=== PATIENT | female | born 1985 | race Caucasian/White ===

== ENCOUNTER 2020-05-30 10:20 | Outpatient (CLI) | payer OTHER | END 2020-05-30 23:59 | disposition home or self-care (01) | LOC: LAB.R 10:20 | PROVIDERS: ATTEND Family Medicine | DX: J06.9 Acute upper respiratory infection, unspecified (principal); Z20.828 Contact with and (suspected) exposure to other viral communicable diseases | CPT/HCPCS: 87070; 87275; 87276 ==

== ENCOUNTER 2020-09-19 20:10 | Emergency (ER) | payer OTHER ==
[2020-09-19] MEDS ORDERED: AMOX/CLAV 875 MG/125 MG TABLET PO STA (20:42)
--- NOTE | 2020-09-19 20:47 | ED Physician Documentation ---
History of Present Illness - Stated complaint Stated Complaint: FACIAL SWELLING - Chief complaint Chief Complaint: Wound - Additonal information Additional information: 35-year-old female presents the emergency department for evaluation of right- sided facial lesions, right-sided facial swelling ear drainage and pain. She reports that for at least 6 months she has been having recurrent skin lesions above her right lip and on the right side of her face. There was an initial suspicion for shingles and she was started on Neurontin as well as acyclovir. She currently remains on acyclovir suppressive therapy though the skin lesions have not dissipated. In addition to that this morning when she was driving to work she felt swelling and pain on the right side of her cheek. She also had drainage coming from the right side of her ear. She did take some ibuprofen but was advised to come to the ER on the advice of her doctor. She denies any fevers, nausea, vomiting, or back pain Review of Systems Constitutional: denies: Chills Eyes: reports: Reviewed and negative Ears: reports: Ear pain, Drainage/discharge Nose: reports: Reviewed and negative Throat: denies: Dental pain / toothache, Sore throat, Swollen tonsils, Swallowed foreign body Cardiac: denies: Chest pain / pressure, Pedal edema Respiratory: denies: Dyspnea, Cough GI: denies: Abdominal Pain, Abdominal Swelling, Nausea Skin: reports: Lesions PD PAST MEDICAL HISTORY - Present Medications Home Medications: Ambulatory Orders Medication Instructions Recorded Confirmed Amox/Clav 875/125 [Augmentin] 1 each PO Q12H #20 tablet 09/19/20 Mupirocin 2% Oint [Bactroban 2% 1 applic TOP BID #22 gm 09/19/20 Oint] - Allergies Allergies/Adverse Reactions: Allergies Allergy/AdvReac Type Severity Reaction Status Date / Time codeine Allergy Nausea Verified 09/19/20 20:15 PD ED PE EXPANDED - General General: Alert, No acute distress, Well developed/nourished - HEENT HEENT: R TM bulging (Erythema of the right TM with purulent fluid effusion seen behind it. Mild erythema of the EAC. Right ear quite tender to touch. No tenderness of the mastoid.). No: Ears normal - Neck Neck: Supple w/out meningeal sx, No tenderness - Cardiac Cardiac: Regular Rate, Regular Rhythm, Pedal strong equal, Cap refill < 2 sec. No: Murmur Present - Respiratory Respiratory: Clear to ausultation ranjana. No: Distress - Abdomen Abdomen: Normal Bowel sounds. No: Tender to palpation - Derm Derm: Normal color, Warm and dry, Other (Shallow irregular ulceration of the right cheek measuring 1 x 2 cm with a yellow base and mild amount of surrounding erythema. Variegated ulcerative lesion on the right upper lip without surrounding erythema. There is some yellow crusting and scabbing) Results - Vitals Vitals: Vital Signs - 24 hr 09/19/20 20:16 Temperature 36.7 C Heart Rate 103 H Respiratory 19 Rate Blood Pressure 144/80 H O2 Saturation 100 Oxygen O2 Source Room air PD MEDICAL DECISION MAKING - ED course Complexity details: d/w patient, d/w family ED course: 35-year-old female presents to the emergency department for evaluation of skin lesions on the right side of her face as well as ear pain and drainage. She has been dealing with what was suspected to be a shingles etiology about 6 months ago but the lesions have not dissipated. She reportedly had positive varicella titers. She remains on suppressive therapy with acyclovir without a change in appearance of these lesions. This morning she developed ear pain drainage and had right-sided facial swelling. On exam she does have a right sided ear infection with a purulent effusion. She will be started on Augmentin for this. There are no lesions around her eyes on her nose or on the ear itself. I do not think she has [place]. However she should continue on the acyclovir and the neurontin Given the duration of these facial lesions for 6 months i doubt that that are viral as she has been on suppressive antivirals, however I feel she would benefit from a dermatology referral. She is advised to request this from her PCP zahida. I have rx augmentin which may help with superficial skin infection as swell as bactroban. On exam no abscess noted, no cyts seen. No dental pain elicited, doubt dental etiology Emergent return precautions discussed Departure - Departure Disposition: Home, Self Care Clinical Impression: Right otitis media with effusion Condition: Stable Record reviewed to determine appropriate education?: Yes Prescriptions: Amox/Clav 875/125 [Augmentin] 1 each PO Q12H #20 tablet Mupirocin 2% Oint [Bactroban 2% Oint] 1 applic TOP BID #22 gm Comments: Rola you absolutely have an inner ear infection in the right ear. This is why you had drainage from the ear this morning as well as the swelling on the face. Please stop using Q-tips. Please fill the prescription for the Augmentin and take twice daily for the next 10 days. The skin lesions on your face are difficult to interpret. It sounds like you have had viral testing that includes herpes and varicella. In addition to that you have been on an antiviral to help suppress viral infections but it is not working. I would like your primary doctor to make a referral for you to a mud trucker. I think a mud trucker will be very helpful in helping you figure out why the skin lesions keep returning and do not get better. When you go to the mud trucker please go with a copy of your viral testing results. In addition to that, I do suspect there is a mild superficial bacterial infection around these skin lesions. The Augmentin will help with skin infection but I also want you to apply the Bactroban ointment to them twice daily for the next 7 to 10 days to see if that improves.
[2020-09-19 20:51] VITALS: BP 130/80
== END 2020-09-19 20:50 | disposition home or self-care (01) ==
LOC: ED 20:10 → SUPCPDRO 20:10 → ED 20:50
DX: H66.41 Suppurative otitis media, unspecified, right ear (principal); L98.499 Non-pressure chronic ulcer of skin of other sites with unspecified severity; L08.9 Local infection of the skin and subcutaneous tissue, unspecified
CPT/HCPCS: 99282; 99284; A9270